=== PATIENT | female | born 1990 | race Caucasian/White ===

== ENCOUNTER 2022-06-02 13:22 | Emergency (ER) | payer OTHER ==
[2022-06-02 13:43] VITALS: BP 126/75; PULSE 98; RESP 18; TEMP 98.4; BMI 20.9
[2022-06-02] MEDS ORDERED: ONDANSETRON *ODT* 4 MG TABLET SL ONE (15:10)
[2022-06-02] MEDS ORDERED: ONDANSETRON *ODT* 4 MG TABLET ONE (15:31)
== END 2022-06-02 16:20 | disposition left against medical advice (07) ==
LOC: JER 13:22
DX: F11.23 Opioid dependence with withdrawal (principal)
CPT/HCPCS: 93005; 93010; 99283-25